=== PATIENT | male | born 1980 | race Hispanic/Latino ===

== ENCOUNTER → 2024-08-06 | Day surgery (SDC) | payer OTHER ==
[~2024-08-06] MED LIST: LIDOCAINE HCL 2% LOCAL INJ 5 ML SDV VIAL INJ ONE; PROPOFOL IV EMULSION 10 MG/ML 20 ML VIAL ONE
[2024-08-06] MEDS: LACTATED RINGER'S 1,000 ML ONE (06:08)
[2024-08-06 07:40] VITALS: TEMP 97.1
[2024-08-06 08:10] VITALS: BP 138/90; PULSE 70; RESP 16; O2SAT 98
== END | disposition home or self-care (01) ==
LOC: OR 05:43
PROVIDERS: ATTEND Internal Medicine Gastroenterology
DX: R10.32 Left lower quadrant pain (principal); K51.40 Inflammatory polyps of colon without complications; K57.30 Diverticulosis of large intestine without perforation or abscess without bleeding; K64.1 Second degree hemorrhoids; K21.9 Gastro-esophageal reflux disease without esophagitis; Z87.19 Personal history of other diseases of the digestive system; Z01.810 Encounter for preprocedural cardiovascular examination
CPT/HCPCS: 45380; 88305; 88342; 93005; J2003; J2704; J7121